=== PATIENT | female | born 1960 | race Caucasian/White ===

== ENCOUNTER → 2016-12-09 | Outpatient (CLI) | payer OTHER ==
[~2016-12-09] MED LIST: CARB200T PO; CZR50 PO; DYZC25/50 PO; METO100T44 PO; OXYC-57 PO
--- NOTE | 2016-12-13 17:29 | EEG Procedure Note ---
EEG Procedure Note Date of Service December 09, 2016. Start / End Times Start Time: 1:32 PM End Time: 2:32 PM Referring Physician Kim Alex History This is a 56-year-old female who is on carbamazepine for epilepsy. Last seizure was 24 years ago. EEG for medication management and further evaluation of epilepsy Home Medication List Scheduled Carbamazepine (Tegretol), 200 MG PO DAILY Losartan Potassium (Cozaar *), 100 MG PO DAILY Metoprolol Succ (Toprol Xl) (Toprol-Xl ), 50 MG PO DAILY Oxycodone/Acetaminophen 5MG/325MG (Percocet 5MG/325MG), 1 TAB PO Q6HR PRN Triamterene/Hctz (Maxzide 50MG/25MG *), 1 TAB PO DAILY Description This is a 21 electrode EEG with a single channel dedicated to limited EKG. The electrodes were placed in accordance with the International 10-20 system. At the start of the recording the patient was in an awake state. Background was well organized and composed of symmetric mixed alpha and beta frequencies with occasional to rare larger amplitude polymorphic generalized delta slowing lasting 1-3 seconds.. There was a symmetric well-formed moderate amplitude 9-10 Hz posterior dominant rhythm that was reactive to eye opening and closure. Hyperventilation was not done. Intermittent photic stimulation at various frequencies produced no abnormalities. Drowsiness was indicated by loss of muscle artifacts and slowing of the background rhythm. There was no sleep transients. Interpretation This is a mildly abnormal routine EEG secondary to occasional intermittent 1-3 second higher amplitude polymorphic generalized delta slowing. There was no electrographic seizures or epileptiform discharges. Clinical Correlation Generalized polymorphic delta slowing during the awake state could either indicate drowsiness or mild encephalopathy versus evidence of a well treated generalized epilepsy.
== END | disposition home or self-care (01) ==
LOC: C.NEUR 13:17
PROVIDERS: ATTEND Psychiatry & Neurology Neurology
DX: G40.109 Localization-related (focal) (partial) symptomatic epilepsy and epileptic syndromes with simple partial seizures, not intractable, without status epilepticus (principal)

== ENCOUNTER → 2017-03-17 | Outpatient (CLI) | payer OTHER ==
[~2017-03-17] MED LIST changes: -METO100T44 PO; +METO1TAB69 PO
--- NOTE | 2017-03-19 16:01 | MAMMOGRAPHY REPORT ---
BILATERAL DIGITAL SCREENING MAMMOGRAM TOMOSYNTHESIS WITH CAD: 03/17/2017 CLINICAL HISTORY: Routine screening. Patient has no complaints. TECHNIQUE: Breast tomosynthesis in addition to standard 2D mammography was performed. Current study was also evaluated with a Computer Aided Detection (CAD) system. COMPARISON: Comparison is made to exams dated: 08/15/2015 mammogram, 08/12/2014 mammogram, 08/10/2013 m ammogram, 11/03/2011 mammogram, 03/21/2010 mammogram, and 03/17/2009 mammogram - [facility] Claudia Kunz. BREAST COMPOSITION: The tissue of both breasts is extremely dense, which lowers the sensitivity of m ammography. FINDINGS: There are a few benign coarse calcifications in the breasts. No suspicious mass, drupal architect ural distortion or cluster of suspicious microcalcifications is seen. IMPRESSION: ACR BI-RADS CATEGORY 1: NEGATIVE There is no mammographic evidence of malignancy. A 1 year screening mammogram is recommended. The pa tient will receive written notification of the results. Approximately 10% of breast cancers are not detected with mammography. A negative mammographic report should not delay biopsy if a clinically suggestive mass is present. Jo Mejía M.D. ay/:03/18/2017 17:25:00 [employer] Work[employer]: Zenia MAZARIEGOS(Yaa)(Terry)(HOLLY), [facility] letter sent: Normal 1/2 BI-RADS Code: ACR BI-RADS Category 1: Negative
== END | disposition home or self-care (01) ==
LOC: C.MAMM 13:35
PROVIDERS: ATTEND Family Medicine
DX: Z12.31 Encounter for screening mammogram for malignant neoplasm of breast (principal)

== ENCOUNTER → 2017-10-17 | Day surgery (SDC) | payer OTHER ==
[2017-09-23 07:34] VITALS: Ht 176.5 cm; Wt 52.3 kg
[~2017-10-17] VITALS: Ht 176.5 cm; Wt 52.3 kg
[~2017-10-17] MED LIST changes: +AMLO-110 PO; -CZR50 PO; -DYZC25/50 PO; +LIDOCAINE HCL 2% 2 ML VIAL (20MG/ML) ONE; +LOSA1TAB38 PO; +METO-217 PO; -METO1TAB69 PO; +MULT-506 PO; +OMEG10007 PO; -OXYC-57 PO; +PROPOFOL IV EMULSION 10 MG/ML 20 ML VIAL IV ONE; +SODIUM CHLORIDE 0.9% 500ML 500 ML IV ONE
--- NOTE | 2017-10-17 11:10 | Endo History and Physical ---
History & Physical Date of Service: Oct 17, 2017. Chief Complaint: History of colon polyps Referring Physician: Dr. Gumaro Manuel History of Present Illness 57 yo CF who presents for colonoscopy secondary to history of colon polyps. Past Surgical History Hx Cardiac Surgery: No Hx Internal Defibrillator: No Hx Pacemaker: No Hx Abdominal Surgery: Yes () Hx of Implantable Prosthesis: No Hx Post-Op Nausea and Vomiting: No Hx Cancer Surgery: No Hx Thoracic Surgery: No Hx Orthopedic: No Hx Urinary Tract Surgery: No Family History None Social History Smoking Status: Former Smoker Hx Substance Use: No Hx Alcohol Use: No Allergies Coded Allergies: NO KNOWN DRUG ALLERGIES (Verified Allergy, Unknown, ., 09/23/17) Current Medications Reported Home Medications Medications Dose Route/Sig Max Daily Dose Days Date Category Multivitamin (Multivitamins) Tab 1 Tab PO DAILY 09/23/17 Reported Coward-3 (Fish Oil) 1 Ea Cap 1 Cap PO DAILY 09/23/17 Reported Cozaar (Losartan Potassium) 100 Mg Tab 100 Mg PO HS 09/23/17 Reported Toprol Xl (Metoprolol Succinate) 50 Mg Tabcr 50 Mg PO HS 09/23/17 Reported Tegretol (Carbamazepine) 200 Mg Tab 200 Mg PO BID 09/23/17 Reported Norvasc (Amlodipine Besylate) 5 Mg Tab 5 Mg PO QAM 09/23/17 Reported Vital Signs Weight (Kilograms): 52.27 Height (Feet): 5 Height (Inches): 9.5 Date Time Temp Pulse Resp B/P (MAP) Pulse Ox O2 Delivery O2 Flow Rate FiO2 10/17/17 10:57 37.2 73 20 174/94 (120) 96 Room Air Physical Exam General Appearance: WD/WN, no apparent distress Respiratory/Chest: Auscultation: breath sounds normal Cardiovascular: Heart Auscultation: RRR Abdomen: Bowel Sounds: normal Inspection & Palpation: soft, non-distended, no tenderness, guarding & rebound Assessment and Plan Assessment: 57 yo CF who presents for colonoscopy secondary to history of colon polyps. Plan: Proceed with colonoscopy.
--- NOTE | 2017-10-17 11:58 | GI REPORT ---
Procedure Date: 10/17/2017 11:13 AM Procedure: Colonoscopy Indications: High risk colon cancer surveillance: Personal history of colonic polyps Medicines: Monitored Anesthesia Care Complications: No immediate complications. Estimated Blood Loss: Estimated blood loss: none. Procedure: Pre-Anesthesia Assessment: - Prior to the procedure, a History and Physical was performed, and patient medications and allergies were reviewed. The patient's tolerance of previous anesthesia was also reviewed. The risks and benefits of the procedure and the sedation options and risks were discussed with the patient. All questions were answered, and informed consent was obtained. Prior Anticoagulants: The patient has taken no previous anticoagulant or antiplatelet agents. ASA Grade Assessment: II - A patient with mild systemic disease. After reviewing the risks and benefits, the patient was deemed in satisfactory condition to undergo the procedure. After I obtained informed consent, the scope was passed under direct vision. Throughout the procedure, the patient's blood pressure, pulse, and oxygen saturations were monitored continuously. The Scope was introduced through the anus and advanced to the terminal ileum. The colonoscopy was performed without difficulty. The patient tolerated the procedure well. The quality of the bowel preparation was good. The terminal ileum, ileocecal valve, appendiceal orifice, and rectum were photographed. Findings: The perianal and digital rectal examinations were normal. Non-bleeding internal hemorrhoids were found during retroflexion. The hemorrhoids were small. Impression: - Non-bleeding internal hemorrhoids. - No specimens collected. Recommendation: - Resume previous diet. - Continue present medications. - Repeat colonoscopy in 5 years for surveillance. - Return to primary care physician as previously scheduled. Ken Mcgregor, DO 10/17/2017 11:57:47 AM This report has been signed electronically. Note Initiated On: 10/17/2017 11:13 AM I attest to the content of the Intraoperative Record and orders documented therein, exceptions below
--- NOTE | 2017-10-17 12:10 | Anesthesiology Progress Note ---
Anesthesia Post Op Note Date & Time Oct 17, 2017 at 12:10 Vital Signs Pain Intensity: 4 Vital Signs Past 12 Hours Date Time Temp Pulse Resp B/P (MAP) Pulse Ox O2 Delivery O2 Flow Rate FiO2 10/17/17 11:59 66 16 173/90 (117) 96 Room Air 10/17/17 10:57 37.2 73 20 174/94 (120) 96 Room Air Notes Mental Status: alert / awake / arousable, participated in evaluation Pt Amnestic to Procedure: Yes Nausea / Vomiting: adequately controlled Pain: adequately controlled Airway Patency, RR, SpO2: stable & adequate BP & HR: stable & adequate, see Notes Hydration State: stable & adequate Anesthetic Complications: no major complications apparent The patient is awake and stable. Her vitals are at her baseline.
--- NOTE | 2017-10-17 12:27 | Discharge Instructions ---
Endoscopy Patient Instructions Date / Procedure(s) Performed Oct 17, 2017. Colonoscopy Allergy Information Coded Allergies: NO KNOWN DRUG ALLERGIES (Verified Allergy, Unknown, ., 09/23/17) Discharge Date / Findings Oct 17, 2017. Internal hemorrhoids Medication Instructions OK to resume all medications today as prescribed Reported Home Medications Medications Dose Route/Sig Max Daily Dose Days Date Category Multivitamin (Multivitamins) Tab 1 Tab PO DAILY 09/23/17 Reported Dunlevy-3 (Fish Oil) 1 Ea Cap 1 Cap PO DAILY 09/23/17 Reported Cozaar (Losartan Potassium) 100 Mg Tab 100 Mg PO HS 09/23/17 Reported Toprol Xl (Metoprolol Succinate) 50 Mg Tabcr 50 Mg PO HS 09/23/17 Reported Tegretol (Carbamazepine) 200 Mg Tab 200 Mg PO BID 09/23/17 Reported Norvasc (Amlodipine Besylate) 5 Mg Tab 5 Mg PO QAM 09/23/17 Reported Provider Instructions Activity Restrictions - No exercising or heavy lifting for 24 hours. - Do not drink alcohol the day of the procedure. - Do not drive a car or operate machinery until the day after the procedure. - Do not make any important decisions or sign important papers in 24 hours after the procedure. Following Day: - Return to full activity which may include returning to work/school. Diet Start your diet with liquids and light foods (jello, soup, juice, toast). Then eat your usual diet if not nauseated. Treatment For Common After Affects For mild abdominal pain, bloating, or excessive gas: - Rest - Eat lightly - Lie on right side Follow-Up Information Follow-up with Dr. Gumaro Manuel as scheduled Anesthesia Information What You Should Know You have had a procedure that required some medicine to reduce anxiety and discomfort. This treatment is called moderate sedation. After receiving the treatment, you may be sleepy, but you will be able to breathe on your own. The effects of the treatment may last for several hours. Follow these instructions along with Activity/Diet recommendations noted above: * Do NOT do anything where dizziness or clumsiness would be dangerous. * Rest quietly at home today, then you can be up and about tomorrow. * Have a responsible person stay with you the rest of today. * You may have had an I.V. today. If so, you may take the dressing off later today. Recommendations Call your doctor if: * Trouble breathing * Continuous vomiting for more than 24 hours * Temperature above 101 degrees * Severe abdominal pain or bloating * Pain not relieved by pain medicine ordered * There is increased drainage or redness from any incision * A large amount of rectal bleeding greater than 2-3 tablespoons. (If you had a polyp/s removed or have hemorrhoids, a small amount of blood - from the rectum is to be expected.) * You have any unanswered questions or concerns. IN THE EVENT OF A SERIOUS EMERGENCY, GO TO THE NEAREST EMERGENCY ROOM Your discharge instructions were prepared by provider Ken Mcgregor. Patient Instructions Signature Page Irma Taylor Patient (or Guardian) Signature/Date: I have read and understand the instructions given to me by my caregivers. Caregiver/RN/Doctor Signature/Date: The above-named patient and/or guardian has received patient instructions on this date. + Original Patient Signature Page (only) stays with chart. Please make copy for patient.
[2017-10-17 12:50] VITALS: BP 155/88; PULSE 68; O2SAT 96
== END | disposition home or self-care (01) ==
LOC: C.GI 10:17
PROVIDERS: ATTEND Internal Medicine
DX: Z12.11 Encounter for screening for malignant neoplasm of colon (principal); K64.8 Other hemorrhoids; I10 Essential (primary) hypertension; Z86.010 Personal history of colon polyps; Z87.891 Personal history of nicotine dependence